=== PATIENT | female | born 1990 | race Caucasian/White ===

== ENCOUNTER 2020-03-06 12:05 | Emergency (ER) | payer OTHER ==
[~2020-03-06] VITALS: Ht 160 cm; Wt 52.2 kg
[~2020-03-06 12:05] MED LIST: BACTRIM; CLEOCIN HCL150 MG PO; PHENERGAN 25 MG25 MG PO
[2020-03-06 13:30] VITALS: BP 128/70
== END 2020-03-06 13:43 | disposition home or self-care (01) ==
LOC: M.ERS 12:05
DX: R05 Cough (principal); Z20.828 Contact with and (suspected) exposure to other viral communicable diseases; F17.210 Nicotine dependence, cigarettes, uncomplicated; Z86.14 Personal history of Methicillin resistant Staphylococcus aureus infection